=== PATIENT | female | born 1995 | race Caucasian/White ===

== ENCOUNTER 2021-12-20 11:31 | Emergency (ER) | payer BC ==
[2021-12-20 12:09] VITALS: RESP 18; BMI 37.4
[2021-12-20 13:15] LABS: BASO % 0.6 % (0-2.0); EOS % 0.6 % (0-4.5); HEMATOCRIT 43.2 % (32.4-45.2); HEMOGLOBIN 14.3 GM/dL (10.7-15.3); LYMPH % 19.8 % (8-40); MCHC 33.2 g/dl (32.0-36.0); MEAN CELL VOLUME 87.4 fl (80-96); MEAN PLT VOLUME 7.6 fl (7.5-11.1); MONO % 6.3 % (3.8-10.2); NEUT % 72.7 % (42.8-82.8); PLATELET COUNT 270 10^3/uL (134-434); RBC 4.94 M/mm3 (3.60-5.2); RDW 13.3 % (11.6-15.6); WHITE BLOOD COUNT 8.6 K/mm3 (4.0-10.0)
[2021-12-20 13:19] LABS: URINE APPEARANCE CLEAR; URINE BILIRUBIN NEGATIVE (NEGATIVE); URINE COLOR YELLOW; URINE GLUCOSE (UA) NEGATIVE (NEGATIVE); URINE KETONE 1+ (NEGATIVE); URINE LEUK ESTERASE NEGATIVE (NEGATIVE); URINE NITRITE NEGATIVE (NEGATIVE); URINE PROTEIN NEGATIVE (NEGATIVE); URINE UROBILINOGEN 0.2 mg/dL (0.2-1.0)
[2021-12-20 13:24] LABS: INR 1.21 (0.83-1.09)
[2021-12-20 13:27] LABS: ACTIVATED PTT 32.2 SECONDS (25.2-36.5)
[2021-12-20 13:37] LABS: BLOOD UREA NITROGEN 8.1 mg/dL (7-18); CALCIUM 9.3 mg/dL (8.5-10.1)
[2021-12-20 13:41] LABS: BILIRUBIN,TOTAL 0.8 mg/dL (0.2-1); CREATININE 0.7 mg/dL (0.55-1.3); TOT PROT 7.4 g/dl (6.4-8.2)
[2021-12-20] MEDS ORDERED: CEFTRIAXONE 1 GM in DEXTROSE 5%-WATER - 100 ML IVPB ONE (16:03)
[2021-12-20] MEDS ORDERED: CEFTRIAXONE 1 GM/50 ML BAG ONE (16:40)
[2021-12-20 18:06] VITALS: BP 119/83; PULSE 88; TEMP 98.9
== END 2021-12-20 18:54 | disposition home or self-care (01) ==
LOC: JER 11:31
DX: R10.31 Right lower quadrant pain (principal); K37 Unspecified appendicitis
CPT/HCPCS: 36415; 74177-TC; 76830-TC; 80053; 81003; 84703; 85025; 85610; 85730; 86850; 86900; 86901; 87086; 93005; 93010; 99285-25; C9803-CS; Q9967; U0003; U0005

== ENCOUNTER 2024-11-20 03:16 | Emergency (ER) | payer OTHER ==
[2024-11-20 03:29] VITALS: BP 132/81; PULSE 69; RESP 18; TEMP 97.9; BMI 40.3
[2024-11-20] MEDS ORDERED: ACETAMINOPHEN 325 MG TABLET (FP) ONE (04:44)
[2024-11-20] MEDS ORDERED: BUPIVACAINE HCL/PF 0.5% (5MG/ML) 10 ML VIAL ONE (04:44)
[2024-11-20] MEDS: BUPIVACAINE HCL/PF 0.5% (5 MG/ML) 30 ML VIAL IJ ONE (04:45)
[2024-11-20] MEDS: ACETAMINOPHEN 325 MG TABLET (FP) PO ONE (04:49)
== END 2024-11-20 06:52 | disposition home or self-care (01) ==
LOC: JER 03:16
PROC: 3E0T3BZ Introduction of Anesthetic Agent into Peripheral Nerves and Plexi, Percutaneous Approach (ICD-10-PCS; principal; 2024-11-20)
DX: O99.613 Diseases of the digestive system complicating pregnancy, third trimester (principal); K08.89 Other specified disorders of teeth and supporting structures; G89.29 Other chronic pain; Z3A.35 35 weeks gestation of pregnancy
CPT/HCPCS: 99283-25